=== PATIENT | male | born 1990 | race Caucasian/White ===

== ENCOUNTER 2018-01-28 15:19 | Emergency (ER) | payer OTHER ==
[~2018-01-28] VITALS: Ht 190.5 cm; Wt 93.0 kg
[2018-01-28] MEDS ORDERED: ZYRTEC10 M3 PO (15:33)
[2018-01-28] MEDS ORDERED: IBU600 MG PO (16:31)
== END 2018-01-28 16:57 | disposition home or self-care (01) ==
LOC: ED 15:19
DX: S93.402A Sprain of unspecified ligament of left ankle, initial encounter (principal); X50.9XXA Other and unspecified overexertion or strenuous movements or postures, initial encounter; Y93.67 Activity, basketball; Y92.149 Unspecified place in prison as the place of occurrence of the external cause
CPT/HCPCS: 73610; 96372; 99283; J1885